=== PATIENT | male | born 1995 | race Caucasian/White ===

== ENCOUNTER 2023-05-05 19:03 | Emergency (ER) | payer SELFPAY ==
[2023-05-05] MEDS ORDERED: Lidocaine 1% 10 ML MDV INJECT ONE (20:28)
[2023-05-05] MEDS ORDERED: Diphtheria,Pertussis(Acell),Tetanus Vaccine 0.5 ML Syringe IM ONE (20:33)
[2023-05-05] MEDS ORDERED: cefTRIAXone 1 GM Vial IM ONE (22:10)
== END 2023-05-05 22:43 | disposition home or self-care (01) ==
LOC: JD.ED 19:03
DX: S41.111A Laceration without foreign body of right upper arm, initial encounter (principal); Z23 Encounter for immunization; Z88.0 Allergy status to penicillin; Z79.899 Other long term (current) drug therapy; W54.0XXA Bitten by dog, initial encounter
CPT/HCPCS: 12002; 90471; 90715; 96372; 99282; J0696; 99283; J3490